=== PATIENT | male | born 1935 ===

== ENCOUNTER 2017-05-17 13:22 | Emergency (ER) | payer MEDICARE ==
[2017-05-17 13:38] VITALS: BMI 27.1
[2017-05-17 15:11] LABS: BASO % 0.2 % (0.0-2.0); EOS % 0.2 % (0.0-4.0); HEMOGLOBIN 14.7 g/dL (12.0-18.0); LYMPH # 1.1 K/uL (1.0-4.3); LYMPH % 8.9 % (20.0-40.0); MEAN CELL VOLUME 99.3 fL (80.0-94.0); MEAN CORPUSCULAR HEMOGLOBIN 33.9 pg (27.0-31.0); MEAN CORPUSCULAR HGB CONC 34.1 g/dL (33.0-37.0); MEAN PLATELET VOLUME 9.9 fL (7.2-11.7); MONO # 0.9 K/uL (0.0-0.8); MONO % 7.1 % (0.0-10.0); NEUT # 10.3 K/uL (1.8-7.0); NEUT % 83.6 % (50.0-75.0); PLATELET COUNT 286 K/uL (130-400); RBC 4.34 Mil/uL (4.40-5.90); RED CELL DISTRIBUTION WIDTH 14.1 % (11.5-14.5)
[2017-05-17 15:17] LABS: WHITE BLOOD COUNT 12.3 K/uL (4.8-10.8)
[2017-05-17 15:36] LABS: ALB/GLOB RATIO 1.2 (1.0-2.1); ALBUMIN 4.5 g/dL (3.5-5.0); ALT/SGPT 32 U/L (21-72); AST/SGOT 40 U/L (17-59); BLOOD UREA NITROGEN 23 mg/dL (9-20); CALCIUM 9.6 mg/dl (8.6-10.4); GFR AFRICAN-AMERICAN 59; GFR NON-AFRICAN AMERICAN 49
[2017-05-17 15:39] LABS: SQUAMOUS EPITHIAL 1 /hpf (0-5); URINE BILIRUBIN NEGATIVE (NEGATIVE); URINE BLOOD NEGATIVE (NEGATIVE); URINE CLARITY Clear (Clear); URINE COLOR Yellow (YELLOW); URINE GLUCOSE (UA) 1+ mg/dL (Normal); URINE LEUKOCYTE ESTERASE NEG Leu/uL (Negative); URINE PROTEIN NEGATIVE (NEGATIVE); URINE UROBILINOGEN NORMAL mg/dL (0.2-1.0)
[2017-05-17 15:46] LABS: CK-MB 3.01 ng/mL (0.0-3.38)
[2017-05-17 15:52] LABS: LYMPHOCYTE 4 % (20-40); MONOCYTE 8 % (0-10); NEUTROPHIL 88 % (50-75); PLATELET ESTIMATE NORMAL (NORMAL); TOTAL CELLS COUNTED 100
[2017-05-17] MEDS ORDERED: Sodium Chloride 0.9% 1,000 ML IV ONE (15:53)
[2017-05-17] MEDS ORDERED: Sodium Chloride 0.9% 1,000 ML ONE (15:57)
[2017-05-17 19:08] VITALS: BP 112/71; PULSE 81; RESP 18; TEMP 97.3; O2SAT 98
--- NOTE | 2017-05-17 19:13 | C.PDOC ---
History Of Present Illness Pt c/o malaise/generalized weakness. Time Seen by Provider: 05/17/17 14:48 Chief Complaint (Nursing): Medical Clearance History Per: Patient, Family Onset/Duration Of Symptoms: Hrs (since this morning) Current Symptoms Are (Timing): Still Present Current Symptoms: Malaise Possible Causative Factor(s): Decreased PO Intake Fall Associated With With Symptoms: No Severity: Moderate Additional History Per: Prior Records - Symptoms Of CVA Recent Head Trauma: No Past Medical History Reviewed: Historical Data, Nursing Documentation, Vital Signs Vital Signs: Last Vital Signs Temp 97.3 F L 05/17/17 19:07 Pulse 81 05/17/17 19:07 Resp 18 05/17/17 19:07 BP 112/71 05/17/17 19:07 Pulse Ox 98 05/17/17 19:07 - Medical History PMH: Diabetes, HTN, Hypercholesterolemia, TIA (as per daughter) Surgical History: Cholecystectomy Family History: States: Unknown Family Hx - Social History Hx Alcohol Use: No Hx Substance Use: No Review Of Systems Except As Marked, All Systems Reviewed And Found Negative. Constitutional: Positive for: Malaise. Negative for: Fever Cardiovascular: Negative for: Chest Pain Respiratory: Negative for: Cough, Shortness of Breath Gastrointestinal: Negative for: Vomiting, Abdominal Pain, Diarrhea Genitourinary: Negative for: Dysuria Musculoskeletal: Negative for: Neck Pain Skin: Negative for: Rash Neurological: Negative for: Weakness, Numbness, Seizures, Altered Mental Status , Headache Physical Exam - Physical Exam Appears: Non-toxic, No Acute Distress Skin: Normal Color, Warm, Dry, No Rash Head: Atraumatic, Normacephalic Eye(s): bilateral: Normal Inspection, PERRL, EOMI Neck: Normal ROM, Supple Cardiovascular: Rhythm Regular Respiratory: Normal Breath Sounds, No Accessory Muscle Use Gastrointestinal/Abdominal: Soft, No Tenderness Back: No CVA Tenderness Extremity: Normal ROM Neurological/Psych: Oriented x3, Normal Cognition, No Cerebellar Signs, Normal Motor, Normal Sensation ED Course And Treatment - Laboratory Results Result Diagrams: 05/17/17 15:07 05/17/17 15:07 ECG: Interpreted By Me, Viewed By Me ECG Rhythm: Sinus Rhythm, Nonspecific Changes ECG Interpretation: No Acute Changes Rate From EC O2 Sat by Pulse Oximetry: 98 Pulse Ox Interpretation: Normal Progress - Interventions Interventions:: Observation, Intravenous fluid - Data Reviewed Data Reviewed: Lab, EKG, Old records - Patient Status Patient status: Completely improved - Continuity of Care Discussed patient case with:: Patient, Family-HIPPA compliant, ED Nurse - Patient Plan Patient Plan: Discharge, F/U with PCP, Continue present meds Disposition Counseled Patient/Family Regarding: Studies Performed, Diagnosis, Need For Followup - Disposition Referrals: Ana M Spencer MD [Medical Doctor] - Disposition: HOME/ ROUTINE Disposition Time: 19:14 Condition: IMPROVED Additional Instructions: Drink plenty of fluids. Follow up with your doctor within 1-2 days. Return to the ER if you develop fever, worsening of symptoms or if you have any other concerns. Instructions: Generalized Weakness (DC) Forms: [facility] (Romanian) Print Language: WOLOF - Clinical Impression Clinical Impression: Malaise and fatigue
--- NOTE | 2017-05-18 20:51 | CARD ---
APPROVED REPORT EKG Measurement Heart [id number] <Conclusion> Normal sinus rhythm Left axis deviation Minimal voltage criteria for LVH, may be normal variant Abnormal ECG
== END 2017-05-17 19:25 | disposition home or self-care (01) ==
LOC: C.ER 13:22
DX: R53.81 Other malaise (principal); R53.83 Other fatigue
CPT/HCPCS: 80053; 81001; 82948; 83735; 84484; 85025; 93005; 96360; 99285; J7040

== ENCOUNTER 2018-02-23 11:35 | Outpatient (CLI) | payer MEDICARE | END 2018-02-23 11:36 | disposition home or self-care (01) | LOC: C.LAB 11:35 | DX: N18.3 Chronic kidney disease, stage 3 (moderate) (principal) ==

== ENCOUNTER 2018-04-14 12:03 | Outpatient (CLI) | payer MEDICARE | END 2018-04-14 12:04 | disposition home or self-care (01) | LOC: C.USIC 12:04 | DX: Z87.442 Personal history of urinary calculi (principal) ==